=== PATIENT | female | born 1975 | race American Indian/Alaskan Native ===

== ENCOUNTER 2017-01-05 18:35 | Emergency (ER) | payer OTHER ==
[~2017-01-05] VITALS: Ht 182.9 cm; Wt 95.0 kg
--- NOTE | 2017-01-05 18:37 | ERA ---
ER Documentation Chief Complaint Date/Time DATE: 01/05/17 TIME: 18:37 Chief Complaint Suicidal HPI The patient is a 41-year-old female, presenting to the ER because she is suicidal. I personally evaluated her yesterday at [facility] for similar symptoms. She denies homicidal ideation, auditory, visual hallucination. She denies fever, chills, neck pain, chest pain, abdominal pain , vomiting, dysuria, diarrhea, constipation. He smokes, drinks, does illicit drug Past medical history: Schizophrenia, diabetes mellitus ROS All systems reviewed and are negative except as per history of present illness. Medications Home Meds Reported Medications Insulin Regular, Human (Humulin R) 100 Unit/1 Ml Vial, IJ sliding scale, VIAL 01/05/17 Insulin Glargine* (Lantus*) 100 Unit/Ml Soln, 15 UNIT SC QHS, #1 VIAL 01/05/17 Venlafaxine Hcl* (Effexor XR*) 150 Mg Cap.sr.24h, 150 MG PO DAILY, CAP 01/05/17 Divalproex Sodium* (Depakote*) 500 Mg Tablet.dr, 500 MG PO BID, #60 TAB 01/05/17 Quetiapine Fumarate* (Seroquel*) 50 Mg Tablet, 50 MG PO BID, TAB take 50mg-qam and 100mg-qpm 01/05/17 Hydrochlorothiazide* (Hydrochlorothiazide*) 25 Mg Tab, 25 MG PO DAILY, #30 TAB 01/05/17 Lisinopril* (Lisinopril*) 20 Mg Tablet, 20 MG PO DAILY, #30 TAB 01/05/17 Allergies Allergies: Coded Allergies: Penicillins (Verified Allergy, Unknown, 01/05/17) Physical Exam Vitals Vital Signs Date Time Temp Pulse Resp B/P Pulse Ox O2 Delivery O2 Flow Rate FiO2 01/05/17 18:44 99.2 96 18 124/73 96 Physical Exam Const: No acute distress. Head: Atraumatic. Eyes: Normal Conjunctiva. ENT: Normal External Ears, Nose and Mouth. Neck: Full range of motion. No meningismus. Resp: Clear to auscultation bilaterally. Cardio: Regular rate and rhythm, no murmurs. Abd: Soft, non distended, normal bowel sounds, non tender. Skin: No petechiae or rashes. Back: No midline or flank tenderness. Ext: No cyanosis, or edema. Neur: Awake and alert. No focal deficit Psych: Depressed and suicidal. Result Diagram: 01/05/17191401/05/171914 Results 24 hrs Laboratory Tests Test 01/05/17 18:54 01/05/17 19:15 01/05/17 19:30 Bedside Glucose 464mg/dL White Blood Count 6.610^3/ul Red Blood Count 4.4210^6/ul Hemoglobin 9.4g/dl Hematocrit 32.5% Mean Corpuscular Volume 73.5fl Mean Corpuscular Hemoglobin 21.3pg Mean Corpuscular Hemoglobin Concent 28.9g/dl Red Cell Distribution Width 15.7% Platelet Count 29012^3/UL Mean Platelet Volume 9.9fl Neutrophils % 59.3% Lymphocytes % 31.0% Monocytes % 6.2% Eosinophils % 2.4% Basophils % 0.8% Nucleated Red Blood Cells % 0.0/100WBC Neutrophils # 3.910^3/ul Lymphocytes # 2.110^3/ul Monocytes # 0.410^3/ul Eosinophils # 0.210^3/ul Basophils # 0.110^3/ul Nucleated Red Blood Cells # 0.010^3/ul Sodium Level 134mmol/L Potassium Level 4.0mmol/L Chloride Level 94mmol/L Carbon Dioxide Level 29mmol/L Anion Gap 15 Blood Urea Nitrogen 18mg/dl Creatinine 0.89mg/dl Glucose Level 443mg/dl Calcium Level 9.5mg/dl Total Bilirubin 0.1mg/dl Direct Bilirubin 0.00mg/dl Indirect Bilirubin 0.1mg/dl Aspartate Amino Transf (AST/SGOT) 17IU/L Alanine Aminotransferase (ALT/SGPT) 21IU/L Alkaline Phosphatase 70IU/L Total Protein 7.1g/dl Albumin 3.8g/dl Globulin 3.30g/dl Albumin/Globulin Ratio 1.15 Serum HCG, Qualitative NEGATIVE Salicylates Level < 1.0mg/dl Acetaminophen Level < 10.0ug/ml Ethyl Alcohol Level < 10.0mg/dl Blood Gas Specimen Source Blood venous Arterial Blood Date Drawn 01/05/2017 7:30:17 PM Arterial Blood Gas Puncture Site VENOUS LINE Kevin Test N/A Venous Blood pH 7.421 Venous Blood pCO2 (Temp Corrected) 43.1mmHG Venous Blood pO2 (Temp Corrected) 45.2mmHG Venous Blood HCO3 27.4mmol/L Venous Blood Oxygen Saturation 79.9mmHG Venous Blood Base Excess 2.6mmol/L Venous Blood Total Hemoglobin 10.1g/dl Venous Blood Oxyhemoglobin 79.2% Venous Blood Methemoglobin 0.4% Carboxyhemoglobin 0.5% Blood Gas Temperature 37.0C Blood Gas Modality ROOM AIR FiO2 21.0% Blood Gas Notified Whom MG Blood Gas Notified Time 01/05/2017 7:37:24 PM Current Medications Medications (Trade) Dose Ordered Sig/Renzo Route PRN Reason Start Time Stop Time Status Last Admin Dose Admin Sodium Chloride 1,000 ml @ 1,000 mls/hr Q1H ONCE IV 01/05/17 19:00 01/05/17 19:59 DC 01/05/17 19:49 Sodium Chloride (NS) 1,000 ml @ 1,000 mls/hr Q1H ONCE IV 01/05/17 19:00 01/05/17 19:59 DC 01/05/17 19:49 Insulin Human Lispro 12 unit 12 unit ONCE STAT SC 01/05/17 19:46 01/05/17 19:54 DC 01/05/17 20:00 Sodium Chloride (NS) 1,000 ml @ 1,000 mls/hr Q1H ONCE IV 01/05/17 20:00 01/05/17 20:59 01/05/17 20:07 Procedures/[place] [id number] Radiology Main Line: [phone] DIAGNOSTIC IMAGING REPORT Patient: ALEJANDRO SALGUERO : 1975 Age: 41 Sex: F MR #: [id number] DOS: 01/05/17 0000 Ordering MD: HUMBLE RAMIREZ MD Location: E/R Room/Bed: PROCEDURE: XR Chest. CLINICAL INDICATION: Fever. TECHNIQUE: PA and Lateral views of the chest were obtained. COMPARISON: None. FINDINGS: The soft tissues are normal. The bony elements are normal. The heart, cardiomediastinal silhouette and hilar structures are normal. The pulmonary vasculature is normal. There is a left-sided aorta. The lungs are clear. The costophrenic angles are normal. IMPRESSION: 1. Normal chest x-ray. 2. No evidence of an acute infiltrate. RPTAT:AAJJ Jayson Antoine Physician Date Time Electronically viewed and signed by Jayson Antoine Physician on 01/05/2017 19:51 JM/ CC: HUMBLE RAMIREZ MD MEDICAL MAKING DECISION: The patient is a 41-year-old female, presenting with acute suicidal ideation, acute diabetic hyperglycemia. She was treated with 3 L normal saline, Humalog 12 units subcutaneously for acute hypoglycemia with good response. The differential diagnoses considered include but are not limited to HHS, DKA, UTI, pneumonia Departure Diagnosis: Primary Impression: Suicidal ideation Additional Impressions: Diabetes mellitus with hyperglycemia Anemia Condition: Stable Comments She is awaiting for telepsychiatrist evaluation HUMBLE RAMIREZ MD Jan 05, 2017 18:37
[2017-01-05 18:44] VITALS: Ht 182.9 cm; Wt 95.0 kg
[2017-01-05] MEDS ORDERED: SOD CHLORIDE 0.9% 1,000 ML IV ONE ×3 (19:00→20:00)
[2017-01-05 19:22] LABS: ADD SCAN DIFF NO
[2017-01-05 19:23] LABS: ABNORMAL IP MESSAGE 1; BASOPHIL # 0.1 10^3/ul (0.0-0.1); BASOPHILS % 0.8 % (0.0-2.0); EOSINOPHILS # 0.2 10^3/ul (0.0-0.5); EOSINOPHILS % 2.4 % (0.0-7.0); HEMATOCRIT 32.5 % (37.0-47.0); HEMOGLOBIN 9.4 g/dl (12.0-16.0); LYMPHOCYTES # 2.1 10^3/ul (0.8-2.9); MEAN CORPUSCULAR HEMOGLOBIN 21.3 pg (29.0-33.0); MEAN CORPUSCULAR HGB CONC 28.9 g/dl (32.0-37.0); MEAN CORPUSCULAR VOLUME 73.5 fl (82.0-101.0); MEAN PLATELET VOLUME 9.9 fl (7.4-10.4); MONOCYTE # 0.4 10^3/ul (0.3-0.9); MONOCYTES % 6.2 % (0.0-11.0); NEUTROPHIL # 3.9 10^3/ul (1.6-7.5); NEUTROPHILS % 59.3 % (39.0-77.0); PLATELET COUNT 269 10^3/UL (140-415); RED BLOOD COUNT 4.42 10^6/ul (4.20-5.40); RED CELL DISTRIBUTION WIDTH 15.7 % (11.5-14.5); WHITE BLOOD COUNT 6.6 10^3/ul (4.8-10.8)
[2017-01-05 19:32] LABS: ALBUMIN 3.8 g/dl (3.3-4.9)
[2017-01-05 19:33] LABS: CHLORIDE 94 mmol/L (97-110); SODIUM 134 mmol/L (135-144)
[2017-01-05 19:35] LABS: ALANINE AMINOTRANSFERASE 21 IU/L (13-69); ALBUMIN/GLOBULIN RATIO 1.15; ALKALINE PHOSPHATASE 70 IU/L (42-121); ANION GAP 15 (8-16); ASPARTATE AMINO TRANSFERASE 17 IU/L (15-46); BILIRUBIN,INDIRECT 0.1 mg/dl (0-1.1); BILIRUBIN,TOTAL 0.1 mg/dl (0.2-1.3); BLOOD UREA NITROGEN 18 mg/dl (7-20); CARBON DIOXIDE 29 mmol/L (21-31); CREATININE 0.89 mg/dl (0.44-1.00); TOTAL PROTEIN 7.1 g/dl (6.1-8.1)
[2017-01-05 19:36] LABS: ACETAMINOPHEN < 10.0 ug/ml (10.0-30.0); CALCIUM 9.5 mg/dl (8.4-10.2); ETHANOL < 10.0 mg/dl; SALICYLATE < 1.0 mg/dl (5.0-30.0)
[2017-01-05 19:37] LABS: MODE ROOM AIR; MetHgb Venous 0.4 %; Sample Type Blood venous; Venous COHb 0.5 %; Venous Fraction OxyHgb 79.2 %; Venous Total Hemglobin 10.1 g/dl
[2017-01-05 19:40] LABS: GLUCOSE 443 mg/dl (70-220)
[2017-01-05] MEDS ORDERED: LISI20TA11 PO (19:44)
[2017-01-05] MEDS ORDERED: HYD25 PO (19:44)
[2017-01-05] MEDS ORDERED: QUET50TA16 PO (19:45)
[2017-01-05] MEDS ORDERED: INSULIN LISPRO 100 UNIT/ML VIAL SC STA ×2 (19:46→21:37)
[2017-01-05] MEDS ORDERED: VENL150C PO (19:46)
[2017-01-05] MEDS ORDERED: DIVA500T7 PO (19:46)
[2017-01-05] MEDS ORDERED: LANT3I SC (19:47)
[2017-01-05] MEDS ORDERED: INSU100V3 IJ (19:48)
--- NOTE | 2017-01-05 19:52 | RADRPT ---
PROCEDURE: XR Chest. CLINICAL INDICATION: Fever. TECHNIQUE: PA and Lateral views of the chest were obtained. COMPARISON: None. FINDINGS: The soft tissues are normal. The bony elements are normal. The heart, cardiomediastinal silhouette and hilar structures are normal. The pulmonary vasculature is normal. There is a left-sided aorta. The lungs are clear. The costophrenic angles are normal. IMPRESSION: 1. Normal chest x-ray. 2. No evidence of an acute infiltrate. RPTAT:AAJJ Physician Jt Date Time Electronically viewed and signed by Physician Jt on 01/05/2017 19:51 JM/
--- NOTE | 2017-01-05 20:52 | PSY ---
Date/Time of Note Date/Time of Note DATE: 01/05/17 TIME: 20:48 Psychiatric Subjective Eval Consent Pt consented to telemedicine: Yes Subjective Evaluation Patient location: emergency Chief Complaint: suicidal thoughts, wants 5150 to transfer to [place]. 5150 yesterday. Reason for consult: SI History of present illness Pt reports history of psychiatric issues. She is having a tough time now because she is isolated and struggling with issues with her mother. She recently re-connected with her mother and learned that he father had passed. Patient reports past history of hallucinations and delusions. Denies currently. However, reports depressed, not sleeping well, poor energy, poor focus and concentration and suicidal thinking. She reports plans of cutting her wrists. She has a history of cutting and does not feel safe out of the hospital. Pt reports she did use alcohol and meth yesterday. However, has been feeling depressed for over two weeks. Past psychiatric history Per record, history of schizophrenia. Multiple inpatient hospitalizations. Patient reportedly takes seroquel and depakote. Compliance is unknown. Hospitalization: yes Family History Denies Medical history Problems Medical Problems: (1) Anemia Status: Acute (2) Diabetes mellitus with hyperglycemia Status: Acute (3) Suicidal ideation Status: Acute Allergies: Coded Allergies: Penicillins (Verified Allergy, Unknown, 01/05/17) Substance Abuse Substance abuse history: Yes Social History Marital status: single Level of education: HS DPA/Conservatorship: No Occupation/Penitentiary: Not employed, homeless Psychiatric Objective Eval Mental Status Examination: Appearance: Poor Hygiene Eye Contact: Fair Psychomotor Activity: Slow Behavior: Cooperative Speech: Soft AFFECT: Flat Mood: Depressed Though Process: Linear Thought Content: Normal Suicidal: Yes Homicidal: No On 72 hour hold: No Orientation: x3 Cognition: Alert Insight: Impared Judgement: Impared Laboratory Results Laboratory Tests Test 01/05/17 18:54 01/05/17 19:15 01/05/17 19:30 Bedside Glucose 464mg/dL White Blood Count 6.610^3/ul Red Blood Count 4.4210^6/ul Hemoglobin 9.4g/dl Hematocrit 32.5% Mean Corpuscular Volume 73.5fl Mean Corpuscular Hemoglobin 21.3pg Mean Corpuscular Hemoglobin Concent 28.9g/dl Red Cell Distribution Width 15.7% Platelet Count 57501^3/UL Mean Platelet Volume 9.9fl Neutrophils % 59.3% Lymphocytes % 31.0% Monocytes % 6.2% Eosinophils % 2.4% Basophils % 0.8% Nucleated Red Blood Cells % 0.0/100WBC Neutrophils # 3.910^3/ul Lymphocytes # 2.110^3/ul Monocytes # 0.410^3/ul Eosinophils # 0.210^3/ul Basophils # 0.110^3/ul Nucleated Red Blood Cells # 0.010^3/ul Sodium Level 134mmol/L Potassium Level 4.0mmol/L Chloride Level 94mmol/L Carbon Dioxide Level 29mmol/L Anion Gap 15 Blood Urea Nitrogen 18mg/dl Creatinine 0.89mg/dl Glucose Level 443mg/dl Calcium Level 9.5mg/dl Total Bilirubin 0.1mg/dl Direct Bilirubin 0.00mg/dl Indirect Bilirubin 0.1mg/dl Aspartate Amino Transf (AST/SGOT) 17IU/L Alanine Aminotransferase (ALT/SGPT) 21IU/L Alkaline Phosphatase 70IU/L Total Protein 7.1g/dl Albumin 3.8g/dl Globulin 3.30g/dl Albumin/Globulin Ratio 1.15 Serum HCG, Qualitative NEGATIVE Salicylates Level < 1.0mg/dl Acetaminophen Level < 10.0ug/ml Ethyl Alcohol Level < 10.0mg/dl Blood Gas Specimen Source Blood venous Arterial Blood Date Drawn 01/05/2017 7:30:17 PM Arterial Blood Gas Puncture Site VENOUS LINE Kevin Test N/A Venous Blood pH 7.421 Venous Blood pCO2 (Temp Corrected) 43.1mmHG Venous Blood pO2 (Temp Corrected) 45.2mmHG Venous Blood HCO3 27.4mmol/L Venous Blood Oxygen Saturation 79.9mmHG Venous Blood Base Excess 2.6mmol/L Venous Blood Total Hemoglobin 10.1g/dl Venous Blood Oxyhemoglobin 79.2% Venous Blood Methemoglobin 0.4% Carboxyhemoglobin 0.5% Blood Gas Temperature 37.0C Blood Gas Modality ROOM AIR FiO2 21.0% Blood Gas Notified Whom MG Blood Gas Notified Time 01/05/2017 7:37:24 PM Assessment and Plan Assessment/Diagnosis [place] I: Schizophrenia, Stimulant Use Disorder Recommendation/Plan Medication Management Per inpatient psychiatry. Psychotherapy Brief supportive therapy Pt. Caregiver/Family Education N/A Follow-up/Disposition Recommend 5150 hold for danger to self. Transfer to inpatient psychiatry. Pt does not appear safe out of the hospital. 5150 Recommendation: Place ROSALIE Taylor Jan 05, 2017 20:52
[2017-01-05 21:13] LABS: ADD UMIC YES; URINE BILIRUBIN (Dip) NEGATIVE (NEGATIVE); URINE BLOOD (Dip) 3+ (NEGATIVE); URINE COLOR LT. YELLOW (YELLOW); URINE GLUCOSE (Dip) >=1000 % (NEGATIVE); URINE KETONES (Dip) NEGATIVE (NEGATIVE); URINE LEUKOCYTE ESTERASE (Dip) NEGATIVE (NEGATIVE); URINE NITRITE (Dip) NEGATIVE (NEGATIVE); URINE TOTAL PROTEIN (Dip) NEGATIVE (NEGATIVE); URINE UROBILINOGEN (Dip) 0.2 E.U./dL (0.1-1.0)
[2017-01-05 21:30] LABS: SQUAMOUS EPITHELIAL CELL,UR MODERATE; URINE RBCS >200 /HPF (0)
[2017-01-05 21:37] LABS: COCAINE Negative (NEGATIVE)
[2017-01-05 21:39] LABS: BARBITURATES Negative (NEGATIVE); BENZODIAZEPINES Negative (NEGATIVE); CANNABINOIDS Negative (NEGATIVE); OPIATES Negative (NEGATIVE)
[2017-01-06 00:41] VITALS: TEMP 98.6
[2017-01-06 06:08] VITALS: BP 174/99; PULSE 77; RESP 16
[2017-01-06] MEDS ORDERED: INSULIN LISPRO 100 UNIT/ML VIAL SC STA (07:05)
[2017-01-06] MEDS ORDERED: HALOPERIDOL 5 MG INJ IM ONE ×2 (12:00→19:00)
[2017-01-06] MEDS ORDERED: DIPHENHYDRAMINE 50 MG INJ IM ONE ×2 (12:00→19:00)
[2017-01-06] MEDS ORDERED: LORAZEPAM 2 MG INJ IM ONE ×2 (12:00→22:30)
--- NOTE | 2017-01-06 22:36 | EN ---
Date/Time of Note Date/Time of Note DATE: 01/06/17 TIME: 22:35 ER Progress Note Observation Note: Time: 4 hours Family Hx: No Hypertension Evaluation: Multiple exams showed improving symptoms and no evidence of DKA The patient was very agitated in the ER, not responding to counseling. She was treated with Benadryl 50 mg IM, Haldol 5 mg IM, Ativan 2 mg IM for acute agitation with good response. Accu-Chek was 283. She was treated with her normal dose of Lantus 15 units subcutaneously HUMBLE RAMIREZ MD Jan 06, 2017 22:36
[2017-01-06] MEDS ORDERED: INSULIN GLARGINE [LANtus] 3 ML PEN SC ONE (23:00)
--- NOTE | 2017-01-07 10:18 | EN ---
Date/Time of Note Date/Time of Note DATE: 01/07/17 TIME: 10:17 ER Progress Note Patient was evaluated by Dr. Cabrera of psychiatry. Patient's been on hold here for over 36 hours and she is no longer suicidal. Dr. Cabrera is released the 5150 and is cleared the patient for discharge home. Diabetic teaching has been done and the diabetic nurses here and has given me recommendations for her prescriptions. The diabetes nurse knows the patient well from OTTO Strickland DO Jan 07, 2017 10:18
[2017-01-07] MEDS ORDERED: INSU100C SQ (10:20)
[2017-01-07] MEDS ORDERED: LANT3I SC (10:20)
--- NOTE | 2017-01-07 12:18 | PSY ---
Date/Time of Note Date/Time of Note DATE: 01/07/17 TIME: 12:12 Psychiatric Subjective Eval Consent Pt consented to telemedicine: Yes Subjective Evaluation Patient location: emergency Chief Complaint: suicidal thoughts, wants 5150 to transfer to [place]. 5150 yesterday. Reason for consult: Pt deneis SI, requests to be released History of present illness Pt is 41 yo homeless female with hx schizophrenia and amphetamine, alcohol use disorder, who was evalauted by Dr Carver 01/05/17. At that time she reproted depressiona nd vague SI with ureges to cut on herself. Pt reports history of psychiatric issues. This AM she denies any SI or HI, she says she has her meds in her bag (Effexor, Zyprexa, TZD) and wants to leave. Denies SI or HI, denies AH or Vh. Irriable, but then suggested, she needs to demonstrate she is able to control her irritability inorder to be released she manages to change her demeanor and acts in a polite and calmer manner. Past psychiatric history multiple inpt Hospitalization: yes Family History denies Medical history Problems Medical Problems: (1) Anemia Status: Acute (2) Diabetes mellitus with hyperglycemia Status: Acute (3) Suicidal ideation Status: Acute Allergies: Coded Allergies: Penicillins (Verified Allergy, Unknown, 01/05/17) Substance Abuse Substance abuse history: Yes Prior substance abuse treatmen: Yes Social History Marital status: single Level of education: HS DPA/Conservatorship: No Occupation/[facility]: Not employed, homeless Psychiatric Objective Eval Mental Status Examination: Appearance: Poor Hygiene Eye Contact: Fair Psychomotor Activity: Normal Behavior: Cooperative Speech: Clear AFFECT: Appropriate Mood: Appropriate/Full Though Process: Linear Thought Content: Normal Suicidal: No Homicidal: No Orientation: x4 Cognition: Alert Insight: Impared Judgement: Impared Laboratory Results Laboratory Tests Test 01/05/17 18:54 01/05/17 19:09 01/05/17 19:15 01/05/17 19:30 Bedside Glucose 464mg/dL 450mg/dL White Blood Count 6.610^3/ul Red Blood Count 4.4210^6/ul Hemoglobin 9.4g/dl Hematocrit 32.5% Mean Corpuscular Volume 73.5fl Mean Corpuscular Hemoglobin 21.3pg Mean Corpuscular Hemoglobin Concent 28.9g/dl Red Cell Distribution Width 15.7% Platelet Count 32302^3/UL Mean Platelet Volume 9.9fl Neutrophils % 59.3% Lymphocytes % 31.0% Monocytes % 6.2% Eosinophils % 2.4% Basophils % 0.8% Nucleated Red Blood Cells % 0.0/100WBC Neutrophils # 3.910^3/ul Lymphocytes # 2.110^3/ul Monocytes # 0.410^3/ul Eosinophils # 0.210^3/ul Basophils # 0.110^3/ul Nucleated Red Blood Cells # 0.010^3/ul Sodium Level 134mmol/L Potassium Level 4.0mmol/L Chloride Level 94mmol/L Carbon Dioxide Level 29mmol/L Anion Gap 15 Blood Urea Nitrogen 18mg/dl Creatinine 0.89mg/dl Glucose Level 443mg/dl Calcium Level 9.5mg/dl Total Bilirubin 0.1mg/dl Direct Bilirubin 0.00mg/dl Indirect Bilirubin 0.1mg/dl Aspartate Amino Transf (AST/SGOT) 17IU/L Alanine Aminotransferase (ALT/SGPT) 21IU/L Alkaline Phosphatase 70IU/L Total Protein 7.1g/dl Albumin 3.8g/dl Globulin 3.30g/dl Albumin/Globulin Ratio 1.15 Serum HCG, Qualitative NEGATIVE Salicylates Level < 1.0mg/dl Acetaminophen Level < 10.0ug/ml Ethyl Alcohol Level < 10.0mg/dl Blood Gas Specimen Source Blood venous Arterial Blood Date Drawn 01/05/2017 7:30:17 PM Arterial Blood Gas Puncture Site VENOUS LINE Kevin Test N/A Venous Blood pH 7.421 Venous Blood pCO2 (Temp Corrected) 43.1mmHG Venous Blood pO2 (Temp Corrected) 45.2mmHG Venous Blood HCO3 27.4mmol/L Venous Blood Oxygen Saturation 79.9mmHG Venous Blood Base Excess 2.6mmol/L Venous Blood Total Hemoglobin 10.1g/dl Venous Blood Oxyhemoglobin 79.2% Venous Blood Methemoglobin 0.4% Carboxyhemoglobin 0.5% Blood Gas Temperature 37.0C Blood Gas Modality ROOM AIR FiO2 21.0% Blood Gas Notified Whom MG Blood Gas Notified Time 01/05/2017 7:37:24 PM Test 01/05/17 20:30 01/05/17 21:19 01/05/17 22:58 01/06/17 00:40 Urine Color LT. YELLOW Urine Clarity SLIGHTLY CLOUDY Urine pH 5.5 Urine Specific [place] 1.010 Urine Ketones NEGATIVE Urine Nitrite NEGATIVE Urine Bilirubin NEGATIVE Urine Urobilinogen 0.2 E.U./dL Urine Leukocyte Esterase NEGATIVE Urine Microscopic RBC >200/HPF Urine Microscopic WBC NONE SEEN/HPF Urine Squamous Epithelial Cells MODERATE Urine Hemoglobin 3+ Urine Glucose >=1000% Urine Total Protein NEGATIVE Urine Opiates Screen Negative Urine Barbiturates Negative Urine Amphetamines Screen Negative Urine Benzodiazepines Screen Negative Urine Cocaine Screen Negative Urine Cannabinoids Negative Bedside Glucose 299mg/dL 205mg/dL 196mg/dL Test 01/06/17 06:16 01/06/17 07:54 01/06/17 08:59 01/06/17 22:31 Bedside Glucose 300mg/dL 311mg/dL 288mg/dL 283mg/dL Assessment and Plan Assessment/Diagnosis [place] I: SCHIZOAFFECTIVE D/O. PSD [place] II: DEFERED [place] III: PER RECORD [place] IV: HOMELESSNESS, LIMITED SUPPORT [place] V: GAF 35 Recommendation/Plan Medication Management PT WILL CONTINUE HER CURRENT MEDS. Psychotherapy REFER TO DRUG REHAB Follow-up/Disposition NO DTS, DTO,GD. PLEASE RELEASE WITH OUTPT REFERRALS. 5150 Recommendation: Release PAPITO Wilcox MD Jan 07, 2017 12:18
== END 2017-01-07 10:48 | disposition home or self-care (01) ==
LOC: E/R 18:35
DX: E11.65 Type 2 diabetes mellitus with hyperglycemia (principal); D64.9 Anemia, unspecified
CPT/HCPCS: 36415; 71010; 80053; 80306; 80307; 81001; 82803; 82962; 84703; 85025; 96360; 96361; 96372; J1200; J1630; J1815; J2060; J7030; Z7502; 81003